=== PATIENT | male | born 1940 | race Two or more races ===

== ENCOUNTER 2022-07-05 22:41 | Emergency (ER) | payer MEDICAID ==
[~2022-07-05] VITALS: Ht 167.6 cm; Wt 73.5 kg
--- NOTE | 2022-07-05 23:16 | NUR ---
BIBS C/O L LOWER LEG TWITCHING AND PAIN FOR THE PAST 3 DAYS. PT STATES HE IS UNABLE TO SLEEP DUE TO THE SENSATION. PT AWAKE AND ALERT X4 BREATHING UNLABORED AMBULATES WITH STEADY GAIT. NO EDEMA NOTWED TO EXTREMITY. ALL V/S WNL.
[2022-07-06] MEDS ORDERED: ACETAMINOPHEN ES 500 MG TABLET PO ONE
[2022-07-06] MEDS ORDERED: ACETAMINOPHEN ES 500 MG TABLET ONE (00:04)
[2022-07-06 00:38] LABS: CALCIUM, SERUM 8.6 mg/dL (8.5-10.1); CARBON DIOXIDE 29 mmol/L (21-32); CHLORIDE 106 mmol/L (98-107); CREATININE 1.3 mg/dL (0.6-1.3); GLUCOSE 97 mg/dL (74-106); POTASSIUM 3.8 mmol/L (3.5-5.1); SODIUM SERUM 142 mmol/L (136-145); UREA NITROGEN, BLOOD 19 mg/dL (7-18)
[2022-07-06 00:41] LABS: MAGNESIUM 2.2 mg/dL (1.8-2.4); PHOSPHORUS 3.4 mg/dL (2.5-4.9)
[2022-07-06 00:44] LABS: ALANINE AMINOTRANSFERASE 23 U/L (12-78); ALBUMIN 3.1 g/dL (3.4-5.0); ALKALINE PHOSPHATASE 53 U/L (46-116); ASPARTATE AMINOTRANSFERASE 22 U/L (15-37); BILIRUBIN,DIRECT 0.1 mg/dL (0.0-0.2); BILIRUBIN,TOTAL 0.5 mg/dL (0.2-1.0); TOTAL PROTEIN, SERUM 6.5 g/dL (6.4-8.2)
[2022-07-06 00:53] LABS: BASOPHILS # (AUTO) 0.1 K/uL (0.0-0.2); BASOPHILS % (AUTO) 1.2 % (0.0-2.0); EOSINOPHILS % (AUTO) 3.8 % (0.0-6.0); HEMATOCRIT 29 % (39-51); HEMOGLOBIN 8.9 g/dL (13.5-17.5); LYMPHOCYTES # (AUTO) 1.7 K/uL (0.8-4.8); LYMPHOCYTES % (AUTO) 21.3 % (20.0-44.0); MEAN CORPUSCULAR HGB CONC 31 g/dl (31.0-36.0); MEAN CORPUSCULAR VOLUME 67 fL (80-96); MONOCYTES # (AUTO) 0.8 K/uL (0.1-1.30); NEUTROPHILS # (AUTO) 5.2 K/uL (1.8-8.9); NEUTROPHILS % (AUTO) 63.7 % (43.0-81.0); PLATELET COUNT (AUTO) 369 K/uL (150-450); RED BLOOD CELL COUNT(AUTO) 4.33 MIL/uL (4.5-6.0); WHITE BLOOD COUNT (AUTO) 8.1 K/uL (4.3-11.0)
[2022-07-06] MEDS ORDERED: FERR325T23 PO (02:17)
[2022-07-06] MEDS ORDERED: GABA-532 PO (02:18)
[2022-07-06] MEDS ORDERED: GABAPENTIN 100 MG CAPSULE PO ONE (03:00)
[2022-07-06] MEDS ORDERED: GABAPENTIN 100 MG CAPSULE ONE (03:01)
--- NOTE | 2022-07-06 04:20 | NUR ---
Patient discharged to home in stable condition. Written and verbal after care instructions given. Patient verbalizes understanding of instruction.
[2022-07-06 04:46] VITALS: BP 124/63
== END 2022-07-06 04:23 | disposition home or self-care (01) ==
LOC: ER 22:43
DX: G25.81 Restless legs syndrome (principal); D50.9 Iron deficiency anemia, unspecified; Z79.899 Other long term (current) drug therapy
CPT/HCPCS: 36415; 80048-TC; 80076-TC; 83735-TC; 84100-TC; 85025-TC

== ENCOUNTER 2022-09-06 03:46 | Emergency (ER) | payer MEDICARE, OTHER ==
[~2022-09-06] VITALS: Ht 162.6 cm; Wt 67.6 kg
[~2022-09-06 03:46] MED LIST: FERR325T23 PO; GABA-532 PO
[2022-09-06 03:59] VITALS: BP 146/86
--- NOTE | 2022-09-06 04:00 | NUR ---
[id number]. L LOWER LEG PAIN -BELOW THE KNEE TO ANKLE. WORSENING IN THE PAST WEEK. NO TRAUMA. TOLERATING R/A WELL WITH NO RESP DISTRESS. SAFETY MEASURES IN PLACE.
--- NOTE | 2022-09-06 04:07 | NUR ---
DR. SUMAN CASANOVA AT PT'S BEDSIDE FOR EVAL
[2022-09-06] MEDS ORDERED: GABAPENTIN 100 MG CAPSULE ONE (04:13)
[2022-09-06] MEDS ORDERED: GABAPENTIN 100 MG CAPSULE PO ONE (04:30)
[2022-09-06] MEDS ORDERED: TAMS-12 PO (11:14)
== END 2022-09-06 04:21 | disposition home or self-care (01) ==
LOC: ER 03:59
DX: G25.81 Restless legs syndrome (principal); Z79.899 Other long term (current) drug therapy

== ENCOUNTER 2022-09-06 08:45 | Emergency (ER) | payer MEDICARE, OTHER ==
[~2022-09-06] VITALS: Ht 167.6 cm; Wt 90.7 kg
--- NOTE | 2022-09-06 10:00 | NUR ---
Spoke to sister [phone] Danette- Updated with plan of care. Apparently patient "Has been complaining of pain in legs last 3days. Sleeping on days awake at night and wanders around." She states "I dont know how he got there. Last I heard door open was early am around 4am"
[2022-09-06 10:44] LABS: BILIRUBIN,URINE NEGATIVE (NEGATIVE); COLOR,URINE YELLOW (YELLOW); LEUKOCYTE ESTERASE ,URINE NEGATIVE (NEGATIVE); NITRITE, URINE NEGATIVE (NEGATIVE); PH,URINE 6.5 (5.0-8.0); PROTEIN,URINE NEGATIVE (NEGATIVE); UGLUCOSE NEGATIVE (NEGATIVE); UROBILINOGEN,URINE 0.2 EU/dL (0.2)
[2022-09-06] MEDS ORDERED: TAMS-12 PO (11:14)
--- NOTE | 2022-09-06 11:24 | NUR ---
CALLED DAUGHTER GUILLAUME, WILL CONTRACT ANALYST PATIENT IN AN HOUR.
--- NOTE | 2022-09-06 13:07 | NUR ---
pt medically cleared. picked up by family. stable condition.
[2022-09-06 13:08] VITALS: BP 140/84
== END 2022-09-06 13:09 | disposition home or self-care (01) ==
LOC: ER 08:48
DX: G25.81 Restless legs syndrome (principal); R35.0 Frequency of micturition; Z79.899 Other long term (current) drug therapy

== ENCOUNTER 2023-08-02 13:22 | Inpatient (IN) | payer MEDICARE, OTHER ==
[~2023-08-02] VITALS: Ht 175.3 cm; Wt 80.7 kg
[~2023-08-02 13:22] MED LIST changes: +TAMS-12 PO
[2023-08-02 14:31] LABS: BASOPHILS % (AUTO) 0.4 % (0.0-2.0); HEMATOCRIT 52 % (39-51); HEMOGLOBIN 16.7 g/dL (13.5-17.5); LYMPHOCYTES # (AUTO) 0.7 K/uL (0.8-4.8); LYMPHOCYTES % (AUTO) 6.6 % (20.0-44.0); MEAN CORPUSCULAR HEMOGLOBIN 28 PG (26.0-33.0); MEAN CORPUSCULAR HGB CONC 33 g/dl (31.0-36.0); MEAN CORPUSCULAR VOLUME 86 fL (80-96); MONOCYTES # (AUTO) 0.7 K/uL (0.1-1.30); NEUTROPHILS # (AUTO) 8.8 K/uL (1.8-8.9); PLATELET COUNT (AUTO) 212 K/uL (150-450); RED CELL DISTRIBUTION WIDTH 18.1 % (11.5-15.0); WHITE BLOOD COUNT (AUTO) 10.3 K/uL (4.3-11.0)
[2023-08-02] MEDS ORDERED: B/P MED (14:39)
[2023-08-02 15:05] LABS: CALCIUM, SERUM 9.4 mg/dL (8.5-10.1); CARBON DIOXIDE 22 mmol/L (21-32); CHLORIDE 101 mmol/L (98-107); CREATININE 1.1 mg/dL (0.6-1.3); GLUCOSE 170 mg/dL (74-106); POTASSIUM 3.8 mmol/L (3.5-5.1); SODIUM SERUM 135 mmol/L (136-145); UREA NITROGEN, BLOOD 15 mg/dL (7-18)
[2023-08-02 15:12] LABS: LACTIC ACID 1.7 mmol/L (0.4-2.0)
[2023-08-02 15:19] LABS: ALANINE AMINOTRANSFERASE 27 U/L (12-78); ALBUMIN 3.7 g/dL (3.4-5.0); ALKALINE PHOSPHATASE 61 U/L (46-116); ASPARTATE AMINOTRANSFERASE 24 U/L (15-37); BILIRUBIN,DIRECT 0.3 mg/dL (0.0-0.2); BILIRUBIN,TOTAL 1.8 mg/dL (0.2-1.0); LIPASE 29 U/L (16-77); TOTAL PROTEIN, SERUM 7.9 g/dL (6.4-8.2)
[2023-08-02] MEDS ORDERED: ONDANSETRON HCL/PF 4 MG/2 ML VIAL IVP PRN (17:30)
[2023-08-02] MEDS ORDERED: PANTOPRAZOLE 40 MG VIAL IV ONE (17:30)
[2023-08-02] MEDS ORDERED: MAG HYDROX/AL HYDROX/SIMETH 30 ML UDC PO PRN (17:30)
[2023-08-02] MEDS ORDERED: PIPERACILLIN /TAZOBACTAM 3.375 G in IV D5W 50 ML IV ONE (17:30)
[2023-08-02] MEDS ORDERED: IV NS 0.9% 1,000 ML BAG IV ONE (17:30)
[2023-08-02] MEDS ORDERED: MORPHINE SULFATE INJ 2 MG/ML DISP.SYRIN IV PRN (17:30)
[2023-08-02] MEDS ORDERED: PANTOPRAZOLE 40 MG VIAL ONE (17:59)
[2023-08-02] MEDS: APIXABAN 5 MG TABLET PO SCH (19:00)
[2023-08-02] MEDS ORDERED: APIXABAN 5 MG TABLET ONE (19:05)
[2023-08-02 19:15] VITALS: BP 161/72; TEMP 99.3; O2SAT 97
[2023-08-02] MEDS: IV NS 0.9% 1,000 ML IV PRN (19:44)
[2023-08-02] MEDS ORDERED: HEPARIN SODIUM, PORCINE 5000 UNITS/1 ML VIAL SQ SCH (21:00)
[2023-08-03] MEDS: ACETAMINOPHEN 325 MG TABLET PO PRN ×2 (01:32→20:33)
[2023-08-03] MEDS: IV NS 0.9% 1,000 ML IV PRN (05:01)
[2023-08-03 07:03] LABS: BASOPHILS # (AUTO) 0.1 K/uL (0.0-0.2); BASOPHILS % (AUTO) 0.7 % (0.0-2.0); EOSINOPHILS % (AUTO) 0.3 % (0.0-6.0); HEMATOCRIT 46 % (39-51); HEMOGLOBIN 14.9 g/dL (13.5-17.5); LYMPHOCYTES # (AUTO) 1.4 K/uL (0.8-4.8); LYMPHOCYTES % (AUTO) 16.2 % (20.0-44.0); MEAN CORPUSCULAR HEMOGLOBIN 28 PG (26.0-33.0); MEAN CORPUSCULAR HGB CONC 32 g/dl (31.0-36.0); MEAN CORPUSCULAR VOLUME 86 fL (80-96); MONOCYTES # (AUTO) 1.1 K/uL (0.1-1.30); NEUTROPHILS # (AUTO) 6.3 K/uL (1.8-8.9); NEUTROPHILS % (AUTO) 70.8 % (43.0-81.0); PLATELET COUNT (AUTO) 192 K/uL (150-450); RED CELL DISTRIBUTION WIDTH 17.6 % (11.5-15.0); WHITE BLOOD COUNT (AUTO) 8.9 K/uL (4.3-11.0)
[2023-08-03 07:17] LABS: BILIRUBIN,TOTAL 1.9 mg/dL (0.2-1.0); CALCIUM, SERUM 8.2 mg/dL (8.5-10.1); MAGNESIUM 2.1 mg/dL (1.8-2.4); PHOSPHORUS 2.8 mg/dL (2.5-4.9); POTASSIUM 3.7 mmol/L (3.5-5.1); TOTAL PROTEIN, SERUM 6.3 g/dL (6.4-8.2)
[2023-08-03] MEDS: APIXABAN 5 MG TABLET PO SCH ×2 (08:26→16:21)
[2023-08-03 08:30] VITALS: BP 159/71; TEMP 98.2; O2SAT 96
[2023-08-03] MEDS ORDERED: APIX2.5T PO (09:00)
[2023-08-03] MEDS ORDERED: ATOR10TA PO (09:00)
[2023-08-03 09:19] LABS: CHOLESTEROL 114 mg/dL (<200); HDL CHOLESTEROL 32 mg/dL (40-60); LDL 72 mg/dL (0-99); TRIGLYCERIDES 45 mg/dL (30-150)
[2023-08-03] MEDS: ASPIRIN EC 81 MG TABLET.DR PO SCH (13:23)
[2023-08-03 16:00] VITALS: BP 158/72; TEMP 98.6; O2SAT 99
[2023-08-03 20:00] VITALS: BP 166/60; TEMP 98.8; O2SAT 99
[2023-08-03] MEDS ORDERED: hydrALAZINE HCL 25 MG TABLET PO PRN (21:30)
[2023-08-03] MEDS ORDERED: ATORVASTATIN 40 MG TABLET PO SCH (22:00)
[2023-08-03] MEDS ORDERED: LORAZEPAM 1 MG TABLET PO PRN (22:30)
[2023-08-04] MEDS ORDERED: LORAZEPAM INJ 2 MG/ML VIAL IV PRN
[2023-08-04] MEDS: ACETAMINOPHEN 325 MG TABLET PO PRN (03:09)
[2023-08-04 05:00] VITALS: BP 156/81; TEMP 98.8; O2SAT 100
[2023-08-04] MEDS: ASPIRIN EC 81 MG TABLET.DR PO SCH (08:27)
[2023-08-04] MEDS: APIXABAN 5 MG TABLET PO SCH (08:28)
[2023-08-04] MEDS ORDERED: Aspirin Ec PO (10:22)
[2023-08-04] MEDS ORDERED: ATOR40TA PO (10:22)
[2023-08-04] MEDS ORDERED: APIX5TAB PO (10:22)
[2023-08-04 12:12] LABS: ALBUMIN 3.6 g/dL (3.4-5.0); BILIRUBIN,DIRECT 0.3 mg/dL (0.0-0.2); BILIRUBIN,TOTAL 1.4 mg/dL (0.2-1.0); TOTAL PROTEIN, SERUM 7.4 g/dL (6.4-8.2)
== END 2023-08-04 15:45 | disposition home or self-care (01) | DRG 445 ==
LOC: ER 13:25 → MED 18:20
PROVIDERS: ADMIT Internal Medicine; ATTEND Internal Medicine
DX: K80.50 Calculus of bile duct without cholangitis or cholecystitis without obstruction (principal); E87.1 Hypo-osmolality and hyponatremia; M48.56XA Collapsed vertebra, not elsewhere classified, lumbar region, initial encounter for fracture; E86.0 Dehydration; I10 Essential (primary) hypertension; I48.91 Unspecified atrial fibrillation; E80.6 Other disorders of bilirubin metabolism; Z90.49 Acquired absence of other specified parts of digestive tract; Z86.73 Personal history of transient ischemic attack (TIA), and cerebral infarction without residual deficits; Z79.01 Long term (current) use of anticoagulants; Z91.199 Patient's noncompliance with other medical treatment and regimen due to unspecified reason; F03.90 Unspecified dementia, unspecified severity, without behavioral disturbance, psychotic disturbance, mood disturbance, and anxiety; N40.0 Benign prostatic hyperplasia without lower urinary tract symptoms; G93.89 Other specified disorders of brain; N20.0 Calculus of kidney; K83.8 Other specified diseases of biliary tract
CPT/HCPCS: 36415; 70450-TC; 71045-TC; 74181-TC; 76700-TC; 80048-TC; 80053-TC; 80061-TC; 80076-TC; 83605-TC; 83690-TC; 83735-TC; 84100-TC; 84484-TC; 85025-TC; 87040-TC; A4223; C9113; G0378; G0480; J2060; J2543; J7030; J7040; J7060

== ENCOUNTER 2023-11-26 13:57 | Emergency (ER) | payer MEDICARE, OTHER ==
[~2023-11-26] VITALS: Ht 165.1 cm; Wt 77.6 kg
[~2023-11-26 13:57] MED LIST changes: +APIX5TAB PO; +ATOR40TA PO; +Aspirin Ec PO; -FERR325T23 PO; -GABA-532 PO; -TAMS-12 PO
[2023-11-26] MEDS: HYDROCODONE/APAP 5/325MG TABLET PO ONE (14:00)
[2023-11-26] MEDS ORDERED: HYDROCODONE/APAP 5/325MG TABLET ONE (15:12)
[2023-11-26] MEDS ORDERED: CALC3.7S BNOSTRILS (16:18)
[2023-11-26] MEDS ORDERED: HYDR-4303 PO (16:18)
[2023-11-26 16:45] VITALS: BP 126/70; TEMP 98.3; O2SAT 97
== END 2023-11-26 16:46 | disposition home or self-care (01) ==
LOC: ER 14:00
DX: M48.56XA Collapsed vertebra, not elsewhere classified, lumbar region, initial encounter for fracture (principal); M54.30 Sciatica, unspecified side
CPT/HCPCS: 72131-TC